=== PATIENT | female | born 1985 | race Caucasian/White ===

== ENCOUNTER 2016-12-04 14:54 | Emergency (ER) | payer OTHER | END 2016-12-04 15:15 | disposition left against medical advice (07) | DX: Z53.21 Procedure and treatment not carried out due to patient leaving prior to being seen by health care provider (principal) ==

== ENCOUNTER 2016-12-04 15:59 | Emergency (ER) | payer OTHER ==
[2016-12-04 16:15] VITALS: O2SAT 97
[2016-12-04 16:39] LABS: % IMMATURE GRANULYOCYTES 0.3 % (0.0-1.1); ABSOLUTE IMMATURE GRANULOCYTES 0.03 10^3/uL (0.00-0.10); ADD DIFF? NO; ADD MORPH? NO; ADD SCAN? NO; ATYPICAL LYMPHOCYTE FLAG 20 (0-99); FRAGMENT RBC FLAG 0 (0-99); HEMATOCRIT 42.5 % (38.0-47.0); HEMOGLOBIN 14.5 g/dL (12.6-16.3); LEFT SHIFT FLG 10 (0-99); LIPEMIA HEMOLYSIS FLAG 90 (0-99); MEAN CELL HEMOGLOBIN 30.5 pg (27.9-34.1); MEAN CELL HEMOGLOBIN CONCENTR. 34.1 g/dL (32.4-36.7); MEAN CELL VOLUME 89.3 fL (81.5-99.8); MEAN PLATELET VOLUME 9.2 fL (8.7-11.7); PLATELET CLUMPS FLAG 0 (0-99); PLATELET COUNT 248 10^3/uL (150-400); RED BLOOD CELL COUNT 4.76 10^6/uL (4.18-5.33); RED CELL DISTRIBUTION WIDTH 13.1 % (11.5-15.2)
--- NOTE | 2016-12-04 16:41 | CPEKG ---
Heart Rate: 88 RR Interval: 682 P-R Interval: 156 QRSD Interval: 86 QT Interval: 352 QTC Interval: 426 P [place]: 49 QRS [place]: 87 T Wave [place]: 51 EKG Severity - NORMAL ECG - EKG Impression: SINUS RHYTHM Electronically Signed By: Ayan Scott 04-Dec-2016 21:09:40
[2016-12-04 16:52] LABS: ANION GAP 11 mEq/L (8-16); CALCIUM 9.6 mg/dL (8.5-10.4); CARBON DIOXIDE 22 mEq/l (22-31); CHLORIDE 103 mEq/L (97-110); CREATININE 0.9 mg/dL (0.6-1.0); GLOMERULAR FILTRATION RATE > 60; GLUCOSE 108 mg/dL (70-100); LITHIUM 0.8 mEq/L (0.6-1.2); POTASSIUM 4.5 mEq/L (3.5-5.2); SODIUM 136 mEq/L (134-144)
[2016-12-04] MEDS ORDERED: NS 1,000 ML IV ONE (17:17)
--- NOTE | 2016-12-04 17:21 | EDPHY ---
H & P Time Seen by Provider: 12/04/16 17:05 HPI/ROS: CHIEF COMPLAINT: Cough chest pain shortness of breath HISTORY OF PRESENT ILLNESS: This is a 31-year-old female presenting to the emergency department complaining of intermittent chest pain x5 days with intermittent productive cough times 3-4 days, nausea vomiting x2 days with decreased p.o. intake, fever of 102 last night did take some Mucinex. Patient states she just has not been able to get off work to come and be evaluated, symptoms seem to worsen last night with intermittent shortness of breath. REVIEW OF SYSTEMS: Constitutional: Fever. Chills. Decreased p.o. intake Eyes: No discharge. ENT: No sore throat. Cardiovascular: Intermittent chest wall pain, no palpitations. Respiratory: Productive cough, intermittent shortness of breath. Gastrointestinal: No abdominal pain, no vomiting. Genitourinary: No hematuria. Musculoskeletal: No back pain. Skin: No rashes. Neurological: Intermittent headache. Smoking Status: Heavy smoker Physical Exam: General Appearance: Alert, no distress. Nontoxic appearing Eyes: Pupils equal and round no pallor or injection. ENT, Mouth: Mucous membranes dry. Oropharynx non erythemic. No tonsillar hypertrophy Respiratory: There are no retractions, lungs coarse bilaterally decreased at the right base Cardiovascular: Regular rate and rhythm. Gastrointestinal: Abdomen is soft and nontender, no masses, bowel sounds normal. Neurological: No focal deficits. Answering questions appropriately Skin: Warm and dry, no rashes. Musculoskeletal: Neck is supple nontender. Extremities: symmetrical, full range of motion. Psychiatric: Patient is oriented X 3, acting appropriately Constitutional: Initial Vital Signs Temperature (C) 36.9 C 12/04/16 16:10 Heart Rate 100 12/04/16 16:10 Respiratory Rate 18 12/04/16 16:10 Blood Pressure 114/68 12/04/16 16:10 O2 Sat (%) 97 12/04/16 16:10 O2 Delivery Mode Room Air Allergies/Adverse Reactions: hydrocodone Allergy (Intermediate, Verified 12/04/16 16:16) Hives Home Medications: Medication Instructions Recorded AZITHROMYCIN [Z-PACK] 250 mg PO DAILY #4 tab 12/04/16 Lamictal 12/04/16 [place] Carbonate 12/04/16 Ritalin 10mg (*) 12/04/16 Safyral Tablet 12/04/16 Trintellix 12/04/16 Xanax 12/04/16 predniSONE 20 mg PO BID #10 tab 12/04/16 Medical Decision Making - Diagnostics Imaging Results: Imaging Impressions Chest X-Ray 12/04/16 16:27 Impression: Right lower lobe interstitial infiltrate/pneumonia. ED Course/Re-evaluation: Discussed the plan of care: CBC, BMP, chest x-ray, EKG, IV fluids, 1740: Discussed chest x-ray results labs with patient. Meeker level is within therapeutic range, chest x-ray right lower lobe pneumonia. Patient complaining of body aches Toradol ordered 1830: Discharge home---> stable, nonlabored respiratory effort, no distress. Discussed all discharge instructions with patient Differential Diagnosis: Other differential diagnosis considered but not limited to pleural effusion, sepsis, and bronchitis - Data Points Laboratory Results: Laboratory Results 12/04/16 16:32 12/04/16 16:32 12/04/16 12/04/16 12/04/16 16:32 16:32 16:32 WBC RBC Hgb POC Hgb Hct POC Hct MCV MCH MCHC RDW Plt Count MPV Neut % (Auto) Lymph % (Auto) Leslie % (Auto) Eos % (Auto) Baso % (Auto) Nucleat RBC Rel Count Absolute Neuts (auto) Absolute Lymphs (auto) Absolute Monos (auto) Absolute Eos (auto) Absolute Basos (auto) Absolute Nucleated RBC Immature Gran % Immature Gran # D-Dimer 0.65 ug/mLFEU H ug/mLFEU (0.00-0.50) POC Sodium Sodium 136 mEq/L mEq/L (134-144) POC Potassium Potassium 4.5 mEq/L mEq/L (3.5-5.2) POC Chloride Chloride 103 mEq/L mEq/L (97-110) Carbon Dioxide 22 mEq/l mEq/l (22-31) Anion Gap 11 mEq/L mEq/L (8-16) POC BUN BUN 10 mg/dL mg/dL (7-23) Creatinine 0.9 mg/dL mg/dL (0.6-1.0) POC Creatinine Estimated GFR > 60 Glucose 108 mg/dL H mg/dL (70-100) POC Glucose Calcium 9.6 mg/dL mg/dL (8.5-10.4) Beta HCG, Qual NEGATIVE [place] 0.8 mEq/L mEq/L (0.6-1.2) 12/04/16 12/04/16 16:32 16:29 WBC 8.67 10^3/uL 10^3/uL (3.80-9.50) RBC 4.76 10^6/uL 10^6/uL (4.18-5.33) Hgb 14.5 g/dL g/dL (12.6-16.3) POC Hgb 15.3 gm/dL gm/dL (12.6-16.3) Hct 42.5 % % (38.0-47.0) POC Hct 45 % % (38-47) MCV 89.3 fL fL (81.5-99.8) MCH 30.5 pg pg (27.9-34.1) MCHC 34.1 g/dL g/dL (32.4-36.7) RDW 13.1 % % (11.5-15.2) Plt Count 248 10^3/uL 10^3/uL (150-400) MPV 9.2 fL fL (8.7-11.7) Neut % (Auto) 81.7 % H % (39.3-74.2) Lymph % (Auto) 12.0 % L % (15.0-45.0) Leslie % (Auto) 5.4 % % (4.5-13.0) Eos % (Auto) 0.3 % L % (0.6-7.6) Baso % (Auto) 0.3 % % (0.3-1.7) Nucleat RBC Rel Count 0.0 % % (0.0-0.2) Absolute Neuts (auto) 7.07 10^3/uL H 10^3/uL (1.70-6.50) Absolute Lymphs (auto) 1.04 10^3/uL 10^3/uL (1.00-3.00) Absolute Monos (auto) 0.47 10^3/uL 10^3/uL (0.30-0.80) Absolute Eos (auto) 0.03 10^3/uL 10^3/uL (0.03-0.40) Absolute Basos (auto) 0.03 10^3/uL 10^3/uL (0.02-0.10) Absolute Nucleated RBC 0.00 10^3/uL 10^3/uL (0-0.01) Immature Gran % 0.3 % % (0.0-1.1) Immature Gran # 0.03 10^3/uL 10^3/uL (0.00-0.10) D-Dimer POC Sodium 135 mEq/L mEq/L (134-144) Sodium POC Potassium 4.1 mEq/L mEq/L (3.3-5.0) Potassium POC Chloride 100 mEq/L mEq/L (97-110) Chloride Carbon Dioxide Anion Gap POC BUN 9 mg/dL mg/dL (7-23) BUN Creatinine POC Creatinine 0.9 mg/dL mg/dL (0.6-1.0) Estimated GFR Glucose POC Glucose 113 mg/dL H mg/dL (70-100) Calcium Beta HCG, Qual [place] Medications Given: Discontinued Medications Azithromycin (Zithromax) 500 mg PO EDNOW ONE PRN Reason: Protocol Stop: 12/04/16 18:00 Last Admin: 12/04/16 18:50 Dose: 500 mg Sodium Chloride (Ns) 1,000 mls @ 0 mls/hr IV ONCE ONE PRN Reason: Wide Open Stop: 12/04/16 17:18 Last Admin: 12/04/16 17:33 Dose: 1,000 mls Ketorolac Tromethamine (Toradol) 30 mg IVP ONCE ONE Stop: 12/04/16 17:27 Last Admin: 12/04/16 17:40 Dose: 30 mg Point of Care Test Results: 12/04/16 16:29 POC Sodium 135 POC Potassium 4.1 POC Chloride 100 POC BUN 9 POC Creatinine 0.9 POC Glucose 113 H Departure - Departure Disposition: Home, Routine, Self-Care Clinical Impression: Pneumonia Qualifiers: Pneumonia type: due to unspecified organism Laterality: right Lung location: lower lobe of lung Qualified Code(s): J18.1 - Lobar pneumonia, unspecified organism Condition: Good Instructions: Pneumonia (ED) Additional Instructions: 1. Take all antibiotics as prescribed 2. Rest, increase fluid intake 3. Ibuprofen 600 mg every 6-8 hours, Tylenol 500 mg to 1000 mg every 6 hours as needed 4. You can take [id number] cough medicine as needed such as dextromethorphan, Mucinex DM may be beneficial also. 5. Follow up with your primary care provider and next week. If any symptoms worsen, such as: Shortness of breath, worsening chest pain, unable to tolerate any p.o. intake return to the ER Referrals: NONE *PRIMARY CARE P,. [Primary Care Provider] - As per Instructions [facility],. [Clinic] - As per Instructions Stand Alone Forms: Work Excuse Prescriptions: AZITHROMYCIN [Z-PACK] 250 mg PO DAILY #4 tab predniSONE 20 mg PO BID #10 tab
[2016-12-04] MEDS ORDERED: KETOROLAC 30 MG/1 ML SDV IVP ONE (17:26)
[2016-12-04] MEDS ORDERED: AZITHROMYCIN 250 MG TAB PO ONE (17:59)
[2016-12-04 18:54] VITALS: BP 117/69; PULSE 65; RESP 16; TEMP 98.1
== END 2016-12-04 18:54 | disposition home or self-care (01) ==
DX: J18.9 Pneumonia, unspecified organism (principal); F17.200 Nicotine dependence, unspecified, uncomplicated; R11.2 Nausea with vomiting, unspecified
CPT/HCPCS: 82947-QW; 96374; J1885